=== PATIENT | male | born 1960 | race Caucasian/White ===

== ENCOUNTER → 2017-01-09 | Day surgery (SDC) | payer OTHER ==
[~2017-01-09] MED LIST: ACETAMINOPHEN 1000 MG/100 ML VIAL IV ONE; BUPIVACAINE/EPINEPHRINE 0.25% 50 ML VIAL ONE; KETOROLAC TROMETHAMINE 30 MG/ML (IVP) VIAL IV PUSH ONE; LACTATED RINGER'S 1000 ML INJ 1,000 ML ONE; MIDAZOLAM HCL 2 MG/2 ML VIAL ONE; MORPHINE SULFATE 4 MG/ML INJ ONE; ONDANSETRON HCL 4 MG/2 ML VIAL IV PUSH ONE; PROPOFOL 200 MG/20 ML AMP IV ONE; ceFAZolin 2 GM PREMIX 50 ML ONE; oxyCODONE/ACETAMINOPHEN 5 MG/325 MG TAB ONE
--- NOTE | 2017-01-09 12:30 | TN ---
cc: AMANDA GREER MD DATE OF SURGERY: 01/09/2017 PREOPERATIVE DIAGNOSIS Bilateral inguinal hernia. POSTOPERATIVE DIAGNOSIS Bilateral inguinal hernia, direct left inguinal hernia, indirect right inguinal hernia, and right spermatic cord lipoma. PROCEDURE Laparoscopic repair of bilateral inguinal hernias with mesh. SURGEON Amanda Greer [employer]OR[employer] CLERK Staff. ESTIMATED BLOOD LOSS 10 cc. OPERATIVE FINDINGS The patient had a moderate-sized direct hernia on the left. On the right side he had a moderate-sized indirect hernia and a large spermatic cord lipoma. The hernia sac was very thin and there was a large tear in the peritoneum which was unable to be repaired. Therefore on the right side I placed a [place] DualMesh. PROCEDURE IN DETAIL The patient was taken to the operating room and placed in the supine position. General anesthesia was induced. The abdomen was prepped and draped in the usual sterile fashion and a surgical timeout was performed to verify correct patient, procedure and site. Local anesthetic was injected in the skin and subcutaneous tissue inferior to the umbilicus and a 1-2 cm transverse incision made just to the left of midline. Dissection was carried out down to the underlying fascia. The anterior fascia was incised and the posterior rectus space was developed carefully. A dissecting balloon was placed down towards the pubis in the posterior rectus space and inflated. Next, a structural balloon was placed and inflated and the extraperitoneal space insufflated to 11 mmHg with CO2 gas. A 5 mm port was placed in the suprapubic and another in the lower midline. The patient was placed in slight Trendelenburg position. Attention was first turned to the left inguinal area. Dissection was carried out laterally and Jay's ligament was identified. There was a moderate-sized direct hernia which was reduced. The peritoneum was reduced up to about the level of the umbilicus throughout. There was also a small indirect hernia which was reduced and the spermatic cord was from the hernia sac. Next, attention was turned to the right inguinal area. Lateral dissection was first carried out. Jay's ligament was identified. There was no direct hernia present. There was a moderate-sized indirect inguinal hernia and this was reduced and the hernia sac from the spermatic cord taking care to preserve the spermatic cord structures. The hernia sac was quite thin and a large rent was created in the hernia sac. This was fairly large and after further attempts to isolate the tear I was unable to repair it. The patient did have insufflation of the intraperitoneal space which was encroaching on the space in the extraperitoneal and therefore I placed a Veress needle superior to the umbilicus through a small separate stab incision to desufflate the peritoneal space. The peritoneum in the right inguinal area had been reduced to approximately the level of the umbilicus. Due to the large tear in the peritoneum I opted to use a protected mesh and chose a 10 x 15 cm [place] DualMesh. This was placed in the right inguinal area. It was positioned appropriately and secured in the right superolateral position at Jay's ligament and anteriorly at the rectus sheath and superolaterally just past the epigastric vessels. There was wide coverage of the entire inguinal floor and the peritoneum was cephalad to the mesh. Attention was turned again to the left inguinal area. Ultrapro Advance 15 x 15 cm mesh was cut to about 12 x 14 cm. It was placed in the left inguinal space and secured superolaterally, medially at Jay's ligament, anterior rectus sheath medially and superolaterally past the epigastric vessels. There was wide coverage of the entire inguinal floor. There was good hemostasis in the operative field. The desufflation was slowly removed as I followed the mesh visually which remained in good position. At this point the trocars were removed. The anterior rectus sheath at the infraumbilical incision was closed with a running 0 Vicryl suture. Skin was closed with 4-0 Monocryl and Dermabond. The patient tolerated the procedure well and was extubated and taken to PACU in stable condition. MD MIGUEL Quevedo/DEE /10:19 AM /12:16 PM
== END | disposition home or self-care (01) ==
LOC: ESDC 06:40
PROVIDERS: ATTEND Surgery
DX: K40.20 Bilateral inguinal hernia, without obstruction or gangrene, not specified as recurrent (principal); D17.6 Benign lipomatous neoplasm of spermatic cord
CPT/HCPCS: 00840; 49650; C1727; C1781; J0131; J0690; J1885; J2250; J2270; J2405; J3010; J7120

== ENCOUNTER 2017-12-15 20:50 | Inpatient (IN) | payer OTHER ==
[2017-12-15] MEDS: ONDANSETRON HCL 4 MG/2 ML VIAL IVP (21:46)
[2017-12-15] MEDS: SODIUM CHLOR 0.9% 1000 ML INJ 1,000 ML IV (21:46)
[2017-12-15] MEDS: MORPHINE SULFATE 4 MG/ML INJ IV PUSH ×2 (21:47→22:58)
[2017-12-15] MEDS: KETOROLAC TROMETHAMINE 30 MG/ML (IVP) VIAL IVP (21:47)
[2017-12-15 21:57] LABS: HEMATOCRIT 44.2 % (39.0-51.0); MEAN CELL VOLUME 94.1 FL (80.0-100.0); MEAN PLATELET VOLUME 10.6 FL (7.0-11.0); PLATELET COUNT 271 TH/MM3 (150-450); RED BLOOD COUNT 4.69 MIL/MM3 (4.50-5.90); RED CELL DISTRIBUTION WIDTH 11.7 % (11.6-17.2)
[2017-12-15 22:00] LABS: BLOOD, URINE TRACE (NEG); GLUCOSE,URINE NEG (NEG); KETONE, URINE 80 OR GREATER mg/dL (NEG); NITRITE,URINE NEG (NEG); URINE COLOR YELLOW (YELLW/STRAW); URINE LEUKOCYTE ESTERASE NEG (NEG)
[2017-12-15 22:08] LABS: CHLORIDE 96 MEQ/L (98-107); POTASSIUM 4.1 MEQ/L (3.5-5.1); SODIUM (NA) 135 MEQ/L (136-145)
[2017-12-15 22:10] LABS: CALCIUM 9.2 MG/DL (8.5-10.1); HEMO FLAGS AUTO DIFF; LIPASE 46 U/L (73-393)
[2017-12-15 22:11] LABS: ALBUMIN 3.1 GM/DL (3.4-5.0); ANION GAP 10 MEQ/L (5-15); APTT (PATIENT) 29.2 SEC (24.3-30.1); BICARBONATE 29.1 MEQ/L (21.0-32.0); BILIRUBIN, URINE NEGATIVE (NEG); BLOOD UREA NITROGEN 17 MG/DL (7-18); GLUCOSE,RANDOM 117 MG/DL (74-106); INTERNATIONAL NORMALIZED RATIO 1.1 RATIO
[2017-12-15 22:12] LABS: SQUAMOUS EPITHELIAL CELL URINE 0-5 /hpf (0-5); WBC, URINE 0-2 /hpf (0-5)
[2017-12-15 22:13] LABS: COMMENT (UR) CULT NOT INDICATED; CULTURE IF INDICATED CULT NOT INDICATED; GLOMERULAR FILTRATION RATE 42 ML/MIN (>89)
[2017-12-15 22:14] LABS: ALT (GPT) 38 U/L (12-78); AST (GOT) 17 U/L (15-37)
[2017-12-15 22:15] LABS: TOTAL BILIRUBIN ADULT 0.8 MG/DL (0.2-1.0); TOTAL PROTEIN 7.5 GM/DL (6.4-8.2)
[2017-12-15 22:16] LABS: LACTIC ACID 1.2 mmol/L (0.4-2.0)
[2017-12-15 22:17] LABS: ALKALINE PHOSPHATASE 125 U/L (45-117)
[2017-12-15 22:23] LABS: BANDS 8 % (0-6); LYMPHOCYTES 6 % (9-44); MONOCYTES 10 % (0-8); NEUTROPHIL # MANUAL DIFF 17.6 TH/MM3 (1.8-7.7); PLATELET ESTIMATE SMEAR NORMAL (NORMAL); PLATELET MORPHOLOGY NORMAL (NORMAL); POLYS (SEG NEUTROPHILS) 76 % (16-70); SCAN/DIFF FINAL DIFF MANUAL; WBC DIFF SAMPLE 100
[2017-12-15] MEDS: HYDROmorphone HCL PF 0.5 MG/0.5 ML SYRINGE IV PUSH (23:31)
[2017-12-15] MEDS: cefTRIAXone INJ 1,000 MG in SODIUM CHLORIDE 0.9% INJ 100 ML IV (23:31)
[2017-12-16] MEDS: AZITHROMYCIN INJ 500 MG in SODIUM CHLOR 0.9% 250 ML INJ 250 ML IV ×2 (00:16→06:12)
[2017-12-16] MEDS: oxyCODONE/ACETAMINOPHEN 5 MG/325 MG TAB PO ×5 (01:00→20:44)
[2017-12-16] MEDS: HYDROmorphone HCL PF 0.5 MG/0.5 ML SYRINGE IV PUSH ×5 (03:41→22:01)
[2017-12-16 08:32] LABS: AUTOMATED NEUTROPHIL # 9.2 TH/MM3 (1.8-7.7); BASOPHIL # 0.1 TH/MM3 (0-0.2); BASOPHIL % 0.8 % (0.0-2.0); EOSINOPHIL # 0.1 TH/MM3 (0-0.4); EOSINOPHIL % 0.8 % (0.0-4.0); HEMATOCRIT 35.9 % (39.0-51.0); HEMOGLOBIN 12.6 GM/DL (13.0-17.0); LYMPH % 10.7 % (9.0-44.0); LYMPHOCYTE # 1.3 TH/MM3 (1.0-4.8); MEAN CORPUSCULAR HEMOGLOBIN 33.1 PG (27.0-34.0); MEAN CORPUSCULAR HGB CONC 35.2 % (32.0-36.0); MEAN PLATELET VOLUME 10.9 FL (7.0-11.0); MONO % 13.6 % (0.0-8.0); MONOCYTE # 1.7 TH/MM3 (0-0.9); NEUT % 74.1 % (16.0-70.0); PLATELET COUNT 240 TH/MM3 (150-450); RED BLOOD COUNT 3.82 MIL/MM3 (4.50-5.90); RED CELL DISTRIBUTION WIDTH 12.6 % (11.6-17.2); WHITE BLOOD COUNT 12.4 TH/MM3 (4.0-11.0)
[2017-12-16 08:35] LABS: HEMO FLAGS DIFF FINAL
[2017-12-16 08:53] LABS: CHLORIDE 101 MEQ/L (98-107); POTASSIUM 3.8 MEQ/L (3.5-5.1); SODIUM (NA) 138 MEQ/L (136-145)
[2017-12-16] MEDS: SODIUM CHLORIDE 0.9% FLUSH 10 ML FLUSH IV FLUSH ×2 (08:53→14:18)
[2017-12-16 08:58] LABS: ANION GAP 6 MEQ/L (5-15); BICARBONATE 30.6 MEQ/L (21.0-32.0); CALCIUM 8.6 MG/DL (8.5-10.1); GLUCOSE,RANDOM 100 MG/DL (74-106)
[2017-12-16 08:59] LABS: BLOOD UREA NITROGEN 20 MG/DL (7-18)
[2017-12-16 09:02] LABS: GLOMERULAR FILTRATION RATE 45 ML/MIN (>89)
[2017-12-16] MEDS: POLYETHYLENE GLYCOL 17 GM PKG PO (20:43)
[2017-12-16] MEDS: cefTRIAXone INJ 1,000 MG in SODIUM CHLORIDE 0.9% INJ 100 ML IV (23:36)
[2017-12-17] MEDS: oxyCODONE/ACETAMINOPHEN 5 MG/325 MG TAB PO ×3 (00:52→09:48)
[2017-12-17] MEDS: HYDROmorphone HCL PF 0.5 MG/0.5 ML SYRINGE IV PUSH ×5 (02:05→17:11)
[2017-12-17 07:00] LABS: CHLORIDE 100 MEQ/L (98-107); POTASSIUM 3.9 MEQ/L (3.5-5.1); SODIUM (NA) 138 MEQ/L (136-145)
[2017-12-17 07:02] LABS: AUTOMATED NEUTROPHIL # 8.2 TH/MM3 (1.8-7.7); BASOPHIL # 0.1 TH/MM3 (0-0.2); BASOPHIL % 0.9 % (0.0-2.0); EOSINOPHIL # 0.1 TH/MM3 (0-0.4); EOSINOPHIL % 0.9 % (0.0-4.0); HEMATOCRIT 39.8 % (39.0-51.0); HEMOGLOBIN 13.4 GM/DL (13.0-17.0); LYMPH % 10.3 % (9.0-44.0); LYMPHOCYTE # 1.1 TH/MM3 (1.0-4.8); MEAN CELL VOLUME 94.1 FL (80.0-100.0); MEAN CORPUSCULAR HEMOGLOBIN 31.8 PG (27.0-34.0); MEAN CORPUSCULAR HGB CONC 33.8 % (32.0-36.0); MEAN PLATELET VOLUME 10.4 FL (7.0-11.0); MONO % 14.1 % (0.0-8.0); MONOCYTE # 1.6 TH/MM3 (0-0.9); NEUT % 73.8 % (16.0-70.0); PLATELET COUNT 308 TH/MM3 (150-450); RED BLOOD COUNT 4.23 MIL/MM3 (4.50-5.90); RED CELL DISTRIBUTION WIDTH 12.7 % (11.6-17.2); WHITE BLOOD COUNT 11.1 TH/MM3 (4.0-11.0)
[2017-12-17 07:08] LABS: CALCIUM 8.9 MG/DL (8.5-10.1); HEMO FLAGS DIFF FINAL
[2017-12-17 07:09] LABS: ANION GAP 7 MEQ/L (5-15); BICARBONATE 31.1 MEQ/L (21.0-32.0); BLOOD UREA NITROGEN 19 MG/DL (7-18); GLUCOSE,RANDOM 89 MG/DL (74-106)
[2017-12-17 07:12] LABS: GLOMERULAR FILTRATION RATE 42 ML/MIN (>89)
[2017-12-17 07:24] LABS: SCAN/DIFF AUTO DIFF CONFIRMED
[2017-12-17] MEDS ORDERED: DEXAMETHASONE SOD PHOS 4 MG/ML VIAL IV (12:00)
[2017-12-17] MEDS: PROPOFOL 200 MG/20 ML AMP IV (12:00)
[2017-12-17] MEDS ORDERED: LIDOCAINE HCL 1% PF 5 ML SYRINGE OTHER (12:00)
[2017-12-17] MEDS: ONDANSETRON HCL 4 MG/2 ML VIAL IV PUSH (12:00)
[2017-12-17] MEDS: DEXAMETHASONE SOD PHOS 4 MG/ML VIAL IV (12:00)
[2017-12-17] MEDS ORDERED: PROPOFOL 200 MG/20 ML AMP IV (12:00)
[2017-12-17] MEDS: LIDOCAINE HCL 1% PF 5 ML SYRINGE OTHER (12:00)
[2017-12-17] MEDS ORDERED: ONDANSETRON HCL 4 MG/2 ML VIAL IV (12:00)
[2017-12-17] MEDS ORDERED: APREPITANT 40 MG CAP (14:18)
[2017-12-17] MEDS ORDERED: INSULIN HUMAN REGULAR 1,000 UNITS/10 ML VIAL SQ (14:45)
[2017-12-17] MEDS ORDERED: METOPROLOL TARTRATE 25 MG TAB PO (14:45)
[2017-12-17] MEDS ORDERED: SODIUM CHLORID 0.9% 500 ML IV (14:45)
[2017-12-17] MEDS: CHLORHEXIDINE GLUCONATE 2 % 1 PACK (2 CLOTHS) TOPICAL (14:58)
[2017-12-17] MEDS: POVIDONE IODINE 5% (ANTISEPSIS KIT) 4 APPLICATIONS EACH NARE (14:58)
[2017-12-17] MEDS: LACTATED RINGER'S 1000 ML IV (14:58)
[2017-12-17] MEDS ORDERED: DO NOT ADM ANY ANTICOAGULANT DRUGS (18:15)
[2017-12-17] MEDS ORDERED: MIDAZOLAM HCL 2 MG/2 ML VIAL (18:18)
[2017-12-18] MEDS: cefTRIAXone INJ 1,000 MG in SODIUM CHLORIDE 0.9% INJ 100 ML IV
[2017-12-18] MEDS: oxyCODONE/ACETAMINOPHEN 5 MG/325 MG TAB PO ×4 (01:55→19:31)
[2017-12-18 06:14] LABS: AUTOMATED NEUTROPHIL # 7.4 TH/MM3 (1.8-7.7); BASOPHIL % 0.3 % (0.0-2.0); HEMATOCRIT 39.8 % (39.0-51.0); HEMO FLAGS DIFF FINAL; HEMOGLOBIN 13.7 GM/DL (13.0-17.0); LYMPHOCYTE # 0.5 TH/MM3 (1.0-4.8); MEAN CORPUSCULAR HEMOGLOBIN 32.3 PG (27.0-34.0); MEAN CORPUSCULAR HGB CONC 34.4 % (32.0-36.0); MEAN PLATELET VOLUME 9.5 FL (7.0-11.0); MONO % 10.4 % (0.0-8.0); MONOCYTE # 0.9 TH/MM3 (0-0.9); NEUT % 83.3 % (16.0-70.0); PLATELET COUNT 355 TH/MM3 (150-450); RED BLOOD COUNT 4.24 MIL/MM3 (4.50-5.90); RED CELL DISTRIBUTION WIDTH 12.7 % (11.6-17.2); WHITE BLOOD COUNT 8.9 TH/MM3 (4.0-11.0)
[2017-12-18 06:39] LABS: ANION GAP 6 MEQ/L (5-15); BICARBONATE 31.9 MEQ/L (21.0-32.0); BLOOD UREA NITROGEN 19 MG/DL (7-18); CALCIUM 8.9 MG/DL (8.5-10.1); CHLORIDE 101 MEQ/L (98-107); CREATININE 1.21 MG/DL (0.60-1.30); GLOMERULAR FILTRATION RATE 62 ML/MIN (>89); GLUCOSE,RANDOM 139 MG/DL (74-106); POTASSIUM 4.3 MEQ/L (3.5-5.1); SODIUM (NA) 139 MEQ/L (136-145)
[2017-12-18] MEDS: AZITHROMYCIN 250 MG TAB PO ×2 (19:31→19:57)
[2017-12-19] MEDS: oxyCODONE/ACETAMINOPHEN 5 MG/325 MG TAB PO ×4 (00:33→14:16)
[2017-12-19] MEDS: cefTRIAXone INJ 1,000 MG in SODIUM CHLORIDE 0.9% INJ 100 ML IV (00:33)
[2017-12-19 05:59] LABS: AUTOMATED NEUTROPHIL # 6.1 TH/MM3 (1.8-7.7); BASOPHIL # 0.1 TH/MM3 (0-0.2); BASOPHIL % 0.6 % (0.0-2.0); EOSINOPHIL # 0.2 TH/MM3 (0-0.4); HEMATOCRIT 40.5 % (39.0-51.0); HEMO FLAGS DIFF FINAL; HEMOGLOBIN 13.8 GM/DL (13.0-17.0); LYMPH % 22.2 % (9.0-44.0); LYMPHOCYTE # 2.1 TH/MM3 (1.0-4.8); MEAN CELL VOLUME 94.8 FL (80.0-100.0); MEAN CORPUSCULAR HEMOGLOBIN 32.4 PG (27.0-34.0); MEAN CORPUSCULAR HGB CONC 34.2 % (32.0-36.0); MEAN PLATELET VOLUME 9.3 FL (7.0-11.0); MONO % 12.2 % (0.0-8.0); MONOCYTE # 1.2 TH/MM3 (0-0.9); PLATELET COUNT 376 TH/MM3 (150-450); RED BLOOD COUNT 4.27 MIL/MM3 (4.50-5.90); RED CELL DISTRIBUTION WIDTH 13.2 % (11.6-17.2); WHITE BLOOD COUNT 9.7 TH/MM3 (4.0-11.0)
[2017-12-19 06:28] LABS: ANION GAP 8 MEQ/L (5-15); BICARBONATE 31.1 MEQ/L (21.0-32.0); BLOOD UREA NITROGEN 17 MG/DL (7-18); CALCIUM 8.9 MG/DL (8.5-10.1); CHLORIDE 103 MEQ/L (98-107); CREATININE 1.11 MG/DL (0.60-1.30); GLOMERULAR FILTRATION RATE 68 ML/MIN (>89); GLUCOSE,RANDOM 90 MG/DL (74-106); POTASSIUM 3.9 MEQ/L (3.5-5.1); SODIUM (NA) 142 MEQ/L (136-145)
[2017-12-19] MEDS: AZITHROMYCIN 250 MG TAB PO (08:47)
[2017-12-19 12:52] LABS: BILIRUBIN, URINE NEG (NEG); BLOOD, URINE MOD (NEG); GLUCOSE,URINE NEG (NEG); KETONE, URINE NEG (NEG); MUCUS URINE FEW /lpf (OCC); NITRITE,URINE NEG (NEG); PH, URINE 7.5 (5.0-8.5); URINE COLOR YELLOW (YELLW/STRAW); URINE LEUKOCYTE ESTERASE SMALL (NEG)
[2017-12-19 12:53] LABS: COMMENT (UR) CULT NOT INDICATED; CULTURE IF INDICATED CULT NOT INDICATED
== END 2017-12-19 18:04 | disposition home or self-care (01) | DRG 693 ==
LOC: PHEDA 12-16 00:14 → PH3B 12-16 01:50 → PHED 20:50 → HSDI 12-17 13:28 → N06A 12-17 19:43
PROC: BT1DZZZ Fluoroscopy of Right Kidney, Ureter and Bladder (ICD-10-PCS; principal; 2017-12-17 17:29)
PROC: 0T768DZ Dilation of Right Ureter with Intraluminal Device, Via Natural or Artificial Opening Endoscopic (ICD-10-PCS; 2017-12-17 17:29)
DX: N13.2 Hydronephrosis with renal and ureteral calculous obstruction (principal); J18.9 Pneumonia, unspecified organism; J90 Pleural effusion, not elsewhere classified; N13.4 Hydroureter; S37.10XA Unspecified injury of ureter, initial encounter; R31.9 Hematuria, unspecified
CPT/HCPCS: 71045; 71046; 71250; 74176; 74420; 76000; 80048; 80053; 81001; 83605; 83690; 85007; 85025; 85027; 85610; 85730; 87040; 93005; 96361; 96365; 96375; 96376; 99285-25